=== PATIENT | female | born 2000 | race Caucasian/White ===

== ENCOUNTER 2022-09-22 18:12 | Emergency (ER) | payer MEDICAID, OTHER ==
[~2022-09-22] VITALS: Ht 160 cm; Wt 95.0 kg
[2022-09-22] MEDS ORDERED: IBUP-2028 MT (20:43)
[2022-09-22] MEDS ORDERED: CIPHCO RIGHT EAR (20:43)
[2022-09-22] MEDS ORDERED: IBUPROFEN 400MG TABLET PO ONE (21:00)
[2022-09-22 21:14] VITALS: BP 134/74
== END 2022-09-22 21:18 | disposition home or self-care (01) ==
LOC: ER 18:12
DX: H60.91 Unspecified otitis externa, right ear (principal)
CPT/HCPCS: 99283